=== PATIENT | male | born 1990 | race Two or more races ===

== ENCOUNTER 2018-02-11 10:16 | Emergency (ER) | payer SELFPAY ==
[2018-02-11 11:40] LABS: BASOPHILS 0.1 % (0-2); EOSINOPHILS 0 % (0-7); HEMATOCRIT 43.9 % (42.0-54.0); HEMOGLOBIN 15.1 g/dL (13.5-17.5); IMMATURE GRANULOCYTES 0.3 % (0-5); LYMPHOCYTES 10.3 % (15-50); MCH 29.7 pg (26.0-34.0); MCHC 34.4 g/dL (31.0-37.0); MCV 86.4 fL (80.0-100.0); MEAN PLATELET VOLUME 11.1 fL (7.4-10.4); MONOCYTES 6.9 % (2-11); NEUTROPHILS 82.4 % (40-80); PLATELET COUNT 194 10x3/uL (130-400); RBC 5.08 10x6/uL (4.20-6.10); WBC 12.4 10x3/uL (4.8-10.8)
[2018-02-11 11:52] LABS: ALBUMIN 4.2 g/dL (3.4-5.0); ALKALINE PHOSPHATASE 77 U/L (46-116); ALT (SGPT) 93 U/L (10-68); CALC OSMOLALITY 287 mosm/kg (275-300); CALCIUM 8.7 mg/dL (8.5-10.1); CARBON DIOXIDE 25.3 mmol/L (21.0-32.0); CHLORIDE - SERUM 105 mmol/L (98-107); CREATININE - SERUM 0.9 mg/dL (0.6-1.3); GLUCOSE 130 mg/dL (74-106); POTASSIUM - SERUM 3.9 mmol/L (3.5-5.1); SODIUM 144 mmol/L (136-145); UREA NITROGEN 9 mg/dL (7-18); eGFR NON AFRICAN AMERICAN > 90 mL/min (90-120)
[2018-02-11 11:56] LABS: CREATINE KINASE 172 UL (21-232); TROPONIN-I < 0.017 ng/mL (0.000-0.060)
== END 2018-02-11 14:00 | disposition home or self-care (01) ==
LOC: D.ER 10:16
PROVIDERS: Nurse Practitioner Family
DX: R09.1 Pleurisy (principal); J20.9 Acute bronchitis, unspecified; R00.0 Tachycardia, unspecified